=== PATIENT | female | born 1995 | race Caucasian/White ===

== ENCOUNTER 2016-11-06 01:59 | Emergency (ER) | payer SELFPAY ==
--- NOTE | 2016-11-06 06:39 | ED ---
Benjamin Hutchinson Janilya, scribed for Sridhar White MD on 11/06/16 at 0520 . Substance Abuse/Use - HPI Summary HPI Summary: A 21 y/o female was BIBA to [facility] for EtOH abuse that occurred today. Amount consumed is unknown. Pt is not verbal, and only nods or shakes her head. At this time, pt denies having a BRYAN or need to vomit. - History Of Current Complaint Chief Complaint: EDSubstanceAbuse Stated Complaint: ETOH Time Seen by Provider: 11/06/16 02:10 Hx Obtained From: Patient Ingestion History: Type/Name Of Drug - EtOH, Amount Ingested - unknown Overdose Characteristics: Oral Severity Initially: Moderate Severity Currently: Moderate Aggravating Factor(s): Nothing Alleviating Factor(s): Nothing Associated Signs And Symptoms: Negative PMH/Surg Hx/FS Hx/Imm Hx Previously Healthy: Yes Infectious Disease History: No Infectious Disease History: Denies: Traveled Outside the [place] in Last 30 Days - Family History Known Family History: Positive: Unknown - pt is drunk - Social History Occupation: Student Review of Systems Negative: Fever, Chills Negative: Erythema Negative: Sore Throat Negative: Chest Pain Negative: Shortness Of Breath, Cough Negative: Abdominal Pain, Vomiting, Nausea Negative: dysuria, hematuria Negative: Myalgia, Edema Negative: Rash Neurological: Negative - pt denies dizziness All Other Systems Reviewed And Are Negative: Yes Physical Exam - Summary Physical Exam Summary: Constitutional: Well-developed, Well-nourished, Drowsy. (-) Distressed Skin: Warm, Dry HENT: Normocephalic; Atraumatic Eyes: Conjunctiva normal Neck: Musculoskeletal ROM normal neck. (-) JVD, (-) Stridor, (-) Tracheal deviation Cardio: Rhythm regular, rate normal, Heart sounds normal; Intact distal pulses; The pedal pulses are 2+ and symmetric. Radial pulses are 2+ and symmetric. (-) Murmur Pulmonary/Chest wall: Effort normal. (-) Respiratory distress, (-) Wheezes, (-) Rales Abd: Soft, (-) Tenderness, (-) Distension, (-) Guarding, (-) Rebound Musculoskeletal: (-) Edema Lymph: (-) Cervical adenopathy Neuro: Alert, Oriented x3 Psych: Mood and affect Normal Triage Information Reviewed: Yes Vital Signs On Initial Exam: Initial Vitals Temp Pulse Resp BP Pulse Ox 96.7 F 95 16 97/69 98 11/06/16 02:07 11/06/16 02:07 11/06/16 02:07 11/06/16 02:07 11/06/16 02:07 Vital Signs Reviewed: Yes Diagnostics - Vital Signs Vital Signs Temp Pulse Resp BP Pulse Ox 11/06/16 02:07 96.7 F 95 16 97/69 98 - Laboratory Lab Statement: Any lab studies that have been ordered have been reviewed, and results considered in the medical decision making process. Re-Evaluation - Re-Evaluation First Eval Re-Evaluation Time: 06:35 Change: Improved - steady gait, sober friend picking up from waiting room Course/Dx - Diagnoses Provider Diagnoses: Alcohol intoxication Discharge - Discharge Plan Condition: Good Disposition: HOME Patient Education Materials: Alcohol Intoxication (ED) Referrals: [facility] [Outside] - 2 Days The documentation as recorded by the Benjamin rod Janilya accurately reflects the service I personally performed and the decisions made by , Sridhar White MD.
[2016-11-06 07:06] VITALS: BP 96/54
== END 2016-11-06 07:06 | disposition home or self-care (01) ==
LOC: ED 01:59
DX: F10.129 Alcohol abuse with intoxication, unspecified (principal)
CPT/HCPCS: 99282